=== PATIENT | male | born 1990 | race Caucasian/White ===

== ENCOUNTER 2017-01-10 15:41 | Emergency (ER) | payer OTHER ==
[~2017-01-10] VITALS: Ht 172.7 cm; Wt 60.0 kg
[~2017-01-10 15:41] MED LIST: INDO25CA PO
[2017-01-10 15:43] VITALS: BP 110/71; PULSE 69; RESP 12; TEMP 97.6; O2SAT 100
--- NOTE | 2017-01-10 16:31 | PD ---
HPI Chief Complaint: Foreign Body Time Seen by Provider: 16:30 Travel History International Travel<30 days: No Contact w/Intl Traveler<30days: No Traveled to known affect area: No History of Present Illness HPI 26-year-old male came to the emergency room with history of foreign body on his left eye. Patient says that he was at work earlier today and was wearing some sort of protection goggles but got a little piece of metal flying into his left eye. And it has been very irritating. He went to urgent care where they tried to take it out but were unsuccessful and sent him here. No blurred vision. Just a foreign body sensation in his eye. He was otherwise doing fine. FOR[facility]LY [facility] Past Medical History Narrative Medical List of his past medical, surgical, social and family history is reviewed from the nursing note. Diminished Hearing: No Immunizations Current: Yes Social History Alcohol Use: No Tobacco Use: Yes Substance Use: No Allergies-Medications (Allergen,Severity, Reaction): Coded Allergies: No Known Allergies (Unverified , 01/10/17) Comments No known drug allergies. Reported Meds & Prescriptions Reported Meds & Active Scripts Active Erythromycin Opth Oint 5 Mg/Gm Oint 1 Applic LEFT EYE BID 5 Days Narrative Medication List of his home medications reviewed from the nursing note. Review of Systems Except as stated in HPI: all other systems reviewed are Neg Eyes: Positive: Foreign Body Sensation Physical Exam Narrative GENERAL: Awake, alert, moderate distress SKIN: Focused skin assessment warm/dry. HEAD: Atraumatic. Normocephalic. EYES: Pupils equal and round. No scleral icterus. Left cornea at 2 o'clock position alf between the pupil and the corneal rim there is a tiny speck of black metal body that can be seen embedded. The conjunctiva is injected. Positive lacrimation. ENT: No nasal bleeding or discharge. Mucous membranes pink and moist. NECK: Trachea midline. No JVD. CARDIOVASCULAR: Regular rate and rhythm. No murmur appreciated. RESPIRATORY: No accessory muscle use. Clear to auscultation. Breath sounds equal bilaterally. GASTROINTESTINAL: Abdomen soft, non-tender, nondistended. Hepatic and splenic margins not palpable. MUSCULOSKELETAL: No obvious deformities. No clubbing. No cyanosis. No edema. NEUROLOGICAL: Awake and alert. No obvious cranial nerve deficits. Motor grossly within normal limits. Normal speech. PSYCHIATRIC: Appropriate mood and affect; insight and judgment normal. Data Data Last Documented VS Orders Orders Proparacaine 0.5% Opth Soln (Alcaine 0.5 (01/10/17 16:45) Erythromycin 0.5% Opth Oint (Ilotycin 0. (01/10/17 17:00) Ed Discharge Order (01/10/17 17:02) [facility] Medical Decision Making Medical Screen Exam Complete: Yes Emergency Medical Condition: Yes Medical Record Reviewed: Yes Differential Diagnosis Corneal foreign body, corneal abrasion Narrative Course 5:07 PM the foreign body was extracted. Please see my procedure note. Patient is doing better. I will discharge him home. Procedures Procedure Narrative Foreign body extraction: The left eye was anesthetized with 3 drops of proparacaine 0.5%. After that a 20-gauge needle attached to an empty syringe was used to gently scraped the foreign body off the cornea. Once the foreign body was loose the eye was irrigated with saline. Patient tolerated the procedure well. With light the eye was inspected again and once no more foreign bodies were seen erythromycin ointment was applied. EKG Prior to Arrival: No Diagnosis Primary Impression: Eye foreign body Qualified Codes: T15.92XA - Foreign body on external eye, part unspecified, left eye, initial encounter Referrals: Jordana Lara MD 1 day Additional Instructions: Please follow-up with the creative designer's name and number been given to you when this discharge instruction. Apply the eye ointment twice a day. Return to the ER if the condition worsens or any other new concerns. You should always wear protective goggles at work. Preferably the ones that cover your eye completely and from the site and bottom. Med/Other Pt SpecificInfo: Prescription(s) given Scripts Erythromycin Opth Oint (Erythromycin Opth Oint) 5 Mg/Gm Oint 1 APPLIC LEFT EYE BID for Infection for 5 Days, #1 TUBE 0 Refills Prov: Isaac Rios MD 01/10/17 Disposition: 01 DISCHARGE HOME Condition: Stable sIaac Rios MD Jan 10, 2017 16:31
[2017-01-10] MEDS ORDERED: PROPARACAINE HCL 0.5% OPHT SOLN 15 ML BTL LEFT EYE ONE (16:45)
[2017-01-10] MEDS ORDERED: ERYTHROMYCIN 0.5% OPTH OINT 3.5 GM TUBO LEFT EYE ONE (17:00)
[2017-01-10] MEDS ORDERED: ERYTOIN10 LEFT EYE (17:01)
== END 2017-01-10 17:27 | disposition home or self-care (01) ==
LOC: NEPD 15:41
DX: T15.02XA Foreign body in cornea, left eye, initial encounter (principal); X58.XXXA Exposure to other specified factors, initial encounter; Y99.0 Civilian activity done for income or pay
CPT/HCPCS: 65220